=== PATIENT | female | born 1990 | race Caucasian/White ===

== ENCOUNTER → 2017-12-03 | Outpatient (CLI) | payer OTHER, BC ==
[~2017-12-03] MED LIST: CRUTCH4 USE; NAPR500 PO
[2017-12-05 07:19] LABS: HBSAG SCREEN Negative (Negative); HCV ANTIBODY 0.1 (0.0-0.9); HEPATITIS B SURF AB QUANT 260.7 mIU/mL (Immunity>9.9); HIV SCREEN 4TH GENERATION WRFX Non Reactive (Non Reactive)
== END | disposition home or self-care (01) ==
LOC: LAB SHORT 17:25 → LAB EV 17:25
PROVIDERS: Family Medicine
DX: Z20.9 Contact with and (suspected) exposure to unspecified communicable disease (principal)
CPT/HCPCS: 84460; 86317; 86803; 87340; 87389

== ENCOUNTER → 2018-01-20 | Outpatient (CLI) | payer OTHER, BC ==
[2018-01-22 08:25] LABS: HIV SCREEN 4TH GENERATION WRFX Non Reactive (Non Reactive)
== END | disposition home or self-care (01) ==
LOC: LAB EV 16:19 → LAB SHORT 16:19
PROVIDERS: Family Medicine
DX: Z20.9 Contact with and (suspected) exposure to unspecified communicable disease (principal)
CPT/HCPCS: 86803; 87389

== ENCOUNTER → 2018-03-11 | Outpatient (CLI) | payer OTHER, BC ==
[2018-03-13 03:12] LABS: HIV SCREEN 4TH GENERATION WRFX Non Reactive (Non Reactive)
== END | disposition home or self-care (01) ==
LOC: LAB SHORT 16:38 → LAB EV 16:38
PROVIDERS: Family Medicine
DX: Z20.9 Contact with and (suspected) exposure to unspecified communicable disease (principal)
CPT/HCPCS: 87389

== ENCOUNTER → 2019-10-05 | Outpatient (CLI) | payer OTHER, BC | END | disposition home or self-care (01) | LOC: LAB 16:33 → LAB SHORT 16:33 | PROVIDERS: Obstetrics & Gynecology | DX: Z12.4 Encounter for screening for malignant neoplasm of cervix (principal) | CPT/HCPCS: G0123 ==

== ENCOUNTER → 2020-04-04 | Outpatient (CLI) | payer OTHER, BC | END | disposition home or self-care (01) | LOC: LAB SHORT 17:00 → LAB 17:00 | DX: Z34.83 Encounter for supervision of other normal pregnancy, third trimester (principal); Z3A.36 36 weeks gestation of pregnancy | CPT/HCPCS: 87081; 87653 ==

== ENCOUNTER 2020-05-02 07:33 | Inpatient (IN) | payer OTHER, BC ==
[~2020-05-02] VITALS: Ht 160 cm; Wt 118.1 kg
[2020-05-02 09:31] LABS: BASOPHILS ABSOLUTE AUTO 0.03 K/mm3 (0.00-0.23); BASOPHILS PERCENT AUTO 0 % (0-2); EOSINOPHILS ABSOLUTE AUTO 0.08 K/mm3 (0.00-0.68); EOSINOPHILS PERCENT AUTO 1 % (0-6); Hematocrit 37.7 % (33.0-51.0); IMMATURE GRAN ABSOLUTE AUTO 0.13 K/mm3 (0.00-0.10); IMMATURE GRAN PERCENT AUTO 1 % (0-1); LYMPHOCYTES ABSOLUTE AUTO 2.52 K/mm3 (0.84-5.20); LYMPHOCYTES PERCENT AUTO 21 % (21-46); MONOCYTES ABSOLUTE AUTO 0.34 K/mm3 (0.16-1.47); MONOCYTES PERCENT AUTO 3 % (4-13); Mean Corpuscular HGB 29.3 pg (26.0-34.0); Mean Corpuscular HGB Conc 31.8 g/dL (31.5-36.5); Mean Corpuscular Volume 92 fL (80-100); Mean Platelet Volume 11.9 fL (9.1-12.4); NEUTROPHILS ABSOLUTE AUTO 9.17 K/mm3 (1.96-9.15); NEUTROPHILS PERCENT AUTO 75 % (41-73); Platelet Count 154 K/mm3 (150-400); RDW Coefficient Variation 13.2 % (11.7-14.2); RDW Standard Deviation 44.8 fL (35.1-46.3); White Blood Cell Count 12.27 K/mm3 (4.00-11.30)
[2020-05-02] MEDS ORDERED: PRENATAL TABLE1 EAC2 PO (09:48)
[2020-05-02] MEDS ORDERED: LEVSOD75 PO (09:49)
[2020-05-02] MEDS ORDERED: DOCU100 PO (09:49)
[2020-05-02] MEDS ORDERED: ACYCLOVIR400 MG (09:50)
--- NOTE | 2020-05-02 10:50 | NUR ---
PT HERE FOR LABOR INDUCTION. WASN'T AWARE OF ORDER, SO NIGHT RN CALLED PT, ANSWERED. THEY HEADED IN FROM HOME. VERY NICE, LOVING COUPLE. EXCITED ABOUT THIS BABY BOY. 40 2/7 WEEKS. PT HAS PURPLE RED DOTS THAT PT REPORTS HARD SPOTS ON THE OUTER LABIA NOTED. PT HAS HSV 2 POSITIVE, HAS NEVER HAD AN OUTBREAK AND WAS UNAWARE OF IT UNTIL MD GAVE RESULTS BACK. ACYLOVIR 400MG PO BID WAS STARTED 2 WEEKS AGAO PER PT AND THAT IS ALSO WHEN PURPLE BUMPS STARTED. PT ALSO HAS WHAT APPEARS TO BE AN INGROWN HAIR AT THE END OF A STRECH CARMEN RIGHT ABOVE HER PUBIC HAIRLINE. WILL TALK WITH MD IF SHE WOULD LIKE US TO CONTINUE ORAL PROVALAXIS WHILE INDUCTION IS GOING. PLANNING CYTO TIL MENA OF 8, THEN START PITOCIN.
[2020-05-03 05:03] LABS: BASOPHILS ABSOLUTE AUTO 0.03 K/mm3 (0.00-0.23); BASOPHILS PERCENT AUTO 0 % (0-2); EOSINOPHILS ABSOLUTE AUTO 0.07 K/mm3 (0.00-0.68); EOSINOPHILS PERCENT AUTO 0 % (0-6); Hematocrit 33.7 % (33.0-51.0); Hemoglobin 10.8 g/dL (11.5-16.0); IMMATURE GRAN ABSOLUTE AUTO 0.13 K/mm3 (0.00-0.10); IMMATURE GRAN PERCENT AUTO 1 % (0-1); LYMPHOCYTES ABSOLUTE AUTO 2.23 K/mm3 (0.84-5.20); LYMPHOCYTES PERCENT AUTO 13 % (21-46); MONOCYTES ABSOLUTE AUTO 0.69 K/mm3 (0.16-1.47); MONOCYTES PERCENT AUTO 4 % (4-13); Mean Corpuscular HGB 29.5 pg (26.0-34.0); Mean Corpuscular Volume 92 fL (80-100); NEUTROPHILS ABSOLUTE AUTO 14.76 K/mm3 (1.96-9.15); NEUTROPHILS PERCENT AUTO 82 % (41-73); Platelet Count 133 K/mm3 (150-400); RDW Coefficient Variation 13.3 % (11.7-14.2); RDW Standard Deviation 45.1 fL (35.1-46.3); Red Blood Cell Count 3.66 M/mm3 (3.80-5.20); White Blood Cell Count 17.91 K/mm3 (4.00-11.30)
--- NOTE | 2020-05-03 16:35 | NUR ---
RN ROUNDED TO HELP W/ . PT STATES HAS BEEN GOING WELL. INSTRUCT/REVIEWED CORRECT POSITIONING, LATCHING, NIPPLE SHAPE AFTER FEEDS, FREQUENCY OF FEEDING, SUPPLY/DEMAND OF BREASTMILK, AND EARLY FEEDING QUES. FURTHER SUPPORT OFFERED IF PT DESIRES. PT LOVING W/ NB, DENIES ANY FURTHER QUESTIONS OR CONCERNS.
--- NOTE | 2020-05-04 10:41 | NUR ---
DISCHARGE INSTRUCTIONS SIGNED. BANDS MATCHED. PT DISCHARGED TO HOME WITH INFANT.
== END 2020-05-04 10:56 | disposition home or self-care (01) | DRG 807 ==
LOC: OBS 07:33 → BC 07:46
PROVIDERS: ADMIT Obstetrics & Gynecology
PROC: 10E0XZZ Delivery of Products of Conception, External Approach (ICD-10-PCS; principal; 2020-05-02)
PROC: 0KQM0ZZ Repair Perineum Muscle, Open Approach (ICD-10-PCS; 2020-05-02)
PROC: 10907ZC Drainage of Amniotic Fluid, Therapeutic from Products of Conception, Via Natural or Artificial Opening (ICD-10-PCS; 2020-05-02)
PROC: 3E033VJ Introduction of Other Hormone into Peripheral Vein, Percutaneous Approach (ICD-10-PCS; 2020-05-02)
DX: O48.0 Post-term pregnancy (principal); Z37.0 Single live birth; O99.824 Streptococcus B carrier state complicating childbirth; O70.1 Second degree perineal laceration during delivery; Z3A.40 40 weeks gestation of pregnancy; O99.214 Obesity complicating childbirth; E66.01 Morbid (severe) obesity due to excess calories; O99.284 Endocrine, nutritional and metabolic diseases complicating childbirth; E03.9 Hypothyroidism, unspecified
CPT/HCPCS: 36415; 51702; 85025; 86850; 86900; 86901; J0290; J1885; J2001; J2405; J2590; J3010; J7120; U0003

== ENCOUNTER 2021-05-03 06:38 | Inpatient (IN) | payer OTHER, BC ==
[~2021-05-03] VITALS: Ht 162.6 cm; Wt 106.0 kg
[~2021-05-03 06:38] MED LIST changes: +ACYCLOVIR400 MG; +DOCU100 PO; +EUTHYROX50 MCG PO; +PRENATAL TABLE1 EAC2 PO
[2021-05-03 07:44] LABS: BASOPHILS ABSOLUTE AUTO 0.06 K/mm3 (0.00-0.23); BASOPHILS PERCENT AUTO 0 % (0-2); EOSINOPHILS ABSOLUTE AUTO 0.24 K/mm3 (0.00-0.68); EOSINOPHILS PERCENT AUTO 1 % (0-6); Hematocrit 42.6 % (33.0-51.0); Hemoglobin 14.6 g/dL (11.5-16.0); IMMATURE GRAN ABSOLUTE AUTO 0.09 K/mm3 (0.00-0.10); IMMATURE GRAN PERCENT AUTO 1 % (0-1); LYMPHOCYTES ABSOLUTE AUTO 3.61 K/mm3 (0.84-5.20); LYMPHOCYTES PERCENT AUTO 22 % (21-46); MONOCYTES PERCENT AUTO 4 % (4-13); Mean Corpuscular HGB 29.8 pg (26.0-34.0); Mean Corpuscular HGB Conc 34.3 g/dL (31.5-36.5); Mean Corpuscular Volume 87 fL (80-100); Mean Platelet Volume 10.6 fL (9.1-12.4); NEUTROPHILS ABSOLUTE AUTO 11.88 K/mm3 (1.96-9.15); NEUTROPHILS PERCENT AUTO 72 % (41-73); Platelet Count 280 K/mm3 (150-400); RDW Coefficient Variation 11.9 % (11.7-14.2); RDW Standard Deviation 37.9 fL (35.1-46.3); White Blood Cell Count 16.58 K/mm3 (4.00-11.30)
[2021-05-03 08:03] LABS: Alanine Aminotransfer (ALT/SGP 38 U/L (12-78); Albumin, Blood 3.6 g/dL (3.4-5.0); Albumin/Globulin Ratio 0.8 (0.8-1.8); Alk Phos 52 U/L (50-136); Anion Gap 10 mmol/L (6-16); Aspartate Aminotrans (AST/SGOT 26 U/L (12-37); Blood Urea Nitrogen 11 mg/dL (8-24); Bun/Creatinine Ratio 15.9 (12.0-20.0); CO2, Blood 23 mmol/L (21-32); Calcium, Blood 9.8 mg/dL (8.5-10.1); Chloride, Blood 103 mmol/L (98-108); Creatinine, Blood 0.69 mg/dL (0.40-1.00); Globulin, Blood 4.6 g/dL (2.2-4.0); Glomerular Filtration Rate >60 (60-); Glucose, Blood 100 mg/dL (70-99); Potassium, Blood 3.1 mmol/L (3.5-5.5); Sodium, Blood 136 mmol/L (136-145); Total Protein, Blood 8.2 g/dL (6.4-8.2)
[2021-05-03 09:23] LABS: Glucose, CSF 38 mg/dL (40-70)
[2021-05-03 09:24] LABS: Automated CSF WBC Count 3.839 K/mm3 (0-5); WBC Count, CSF 3839 /mm3 (0-5)
[2021-05-03 09:30] LABS: Automated CSF WBC Count 4.141 K/mm3 (0-5); WBC Count, CSF 4141 /mm3 (0-5)
[2021-05-03 09:52] LABS: Appearance, CSF Hazy (Clear); Color, CSF No Color (No Color)
[2021-05-03 09:53] LABS: RBC Count, CSF 47 /mm3 (0-0)
[2021-05-03 10:11] LABS: Appearance, CSF Hazy (Clear); Color, CSF No Color (No Color)
[2021-05-03 10:12] LABS: RBC Count, CSF 17 /mm3 (0-0)
[2021-05-03 10:17] LABS: Lymphocytes, CSF 1 % (40-80); Neutrophils, CSF 99 % (0-6)
[2021-05-03 10:19] LABS: Neutrophils, CSF 100 % (0-6)
[2021-05-03 10:40] LABS: Cryptococcus Neoformans/Gattii Not Detected (NOT DETECT); Enterovirus Not Detected (NOT DETECT); Escherichia Coli K1 Not Detected (NOT DETECT); Haemophilus Influenza Not Detected (NOT DETECT); Herpes Simplex Virus 1 Not Detected (NOT DETECT); Herpes Simplex Virus 2 Not Detected (NOT DETECT); Human Herpesvirus 6 Not Detected (NOT DETECT); Human Parechovirus Not Detected (NOT DETECT); Listeria Monocytogenes Not Detected (NOT DETECT); Neisseria Meningitidis Not Detected (NOT DETECT); Streptococcus Agalactiae Not Detected (NOT DETECT); Streptococcus Pneumoniae Not Detected (NOT DETECT); Varicella Zoster Virus Not Detected (NOT DETECT)
[2021-05-03 13:31] LABS: Source, Urine Catheter
--- NOTE | 2021-05-03 13:35 | NUR ---
Assumed care of pt upon arrival to ICU 7 from emergency department at 1135. Pt transferred from ED [place] to ICU bed using slider sheet and 5 staff. Pt in pain during transfer and in-bed repositioning to remove previous linens. Pain resolved with cessation of activity. Bandaid noted to pt's lower back, site of lumbar puncture, unremarkable in assessment. Pt responsive to verbal stimulus. Answers questions appropriately. Gives correct name, location, and date. States "he went home" when asked where her spouse is, as he was with her in the ER. Pt on room air. SpO2 90% or greater. ST per monitor, BP stable.
[2021-05-03 13:37] LABS: Appearance, Urine Clear (Clear); Bilirubin, Urine Neg (Neg); Blood, Urine 1+ (Neg); Color, Urine Yellow (P-Yellow); Glucose Qualitative, Urine Neg (Neg); Ketones, Urine 3+ (Neg); Leukocyte Esterase, Urine Neg (Neg); Nitrite, Urine Neg (Neg); Protein, Urine Neg (Neg); Urobilinogen, Urine 1+ (Normal)
--- NOTE | 2021-05-03 13:42 | NUR ---
Plan of care discussed with Dr Michel. Alexis inserted for strict I/O. test obtained. Plan to replace potassium and give addition 1 G rocephin to equal total admin 2 G.
[2021-05-03 13:59] LABS: Bacteria Not Seen /hpf; RBC Cast Rare /lpf (0); Squamous Epithelial Cells Rare /hpf (Few); White Blood Cells, Urine Not Seen /hpf (0-5)
[2021-05-03] MEDS ORDERED: Adipex-P37.5 MG PO (14:59)
[2021-05-03] MEDS ORDERED: ENSKYCE 28 TAB1 EACH PO (15:00)
[2021-05-03 17:42] LABS: Albumin, Blood 3.4 g/dL (3.4-5.0); Anion Gap 7 mmol/L (6-16); Blood Urea Nitrogen 8 mg/dL (8-24); Bun/Creatinine Ratio 14.7 (12.0-20.0); CO2, Blood 24 mmol/L (21-32); Calcium, Blood 8.9 mg/dL (8.5-10.1); Chloride, Blood 104 mmol/L (98-108); Creatinine, Blood 0.55 mg/dL (0.40-1.00); Glomerular Filtration Rate >60 (60-); Glucose, Blood 142 mg/dL (70-99); Phosphorus, Blood 3.7 mg/dL (2.5-4.9); Potassium, Blood 4.1 mmol/L (3.5-5.5); Sodium, Blood 135 mmol/L (136-145)
--- NOTE | 2021-05-03 17:57 | NUR ---
SUMMARY Neuro: Pt lethargic. Sensitive to dilaudid, but requires it for severe neck and back pain. Pt A&O x 4. Answers questions. Follows commands. Verbalizes needs. States correct reason why she is in hospital. Pt has not gotten OOB since arrival to unit. Moves all extremities. Denies numbness or tingling to extremities. 3 mm pupils. PERRL. Neuro assessment unchanged from arrival to unit. Respiratory: Lungs clear t/o. Pt on room air. Cardiac: ST per monitor. BP high/normal. Capillary refill less than 3 seconds BUE/BLE. 2+ radial, pedal, posttibial pulses. No edema. Unremarkable heart sounds. GI: Hypoactive BT. NPO diet, however okay for sips of water and meds. Tolerated small sips of water with tylenol. : Alexis catheter in place for strict measurement of fluid intake and output. Patent and draining clear, yellow urine. Skin: Unremarkable Psychosocial: Withdrawn. Flat affect. Anxious at times. Pt's spouse visited at bedside today. He also assisted with admission information.
--- NOTE | 2021-05-03 21:02 | NUR ---
ASSUMPTION OF CARE REPORT RECIEVED FROM DAY SHIFT RN. PT DROWSY, AWAKE WITH VERBAL STIMULI, ALERT AND ORIENTED X 4. PT HAS 5/5 STRENGTH BILATERALLY UE/LE. NEURO CHECKS TO BE DONE Q 2 HOURS. PT REPORTS PAIN TO THE BACK OF THE HEAD/ NECK. PRN MEDICATION GIVEN. PT ON DROPLET/CONTACT PRECAUTIONS. LOW GRADE FEVER NOTED. TEMP DE LEON IN PLACE AND DRAINING YELLOW URINE. SEE SHIFT ASSESSMENT. WILL CONTINUE TO MONITOR.
[2021-05-04 05:34] LABS: BASOPHILS ABSOLUTE AUTO 0.03 K/mm3 (0.00-0.23); BASOPHILS PERCENT AUTO 0 % (0-2); Hematocrit 38.8 % (33.0-51.0); Hemoglobin 13.1 g/dL (11.5-16.0); LYMPHOCYTES ABSOLUTE AUTO 1.17 K/mm3 (0.84-5.20); LYMPHOCYTES PERCENT AUTO 6 % (21-46); MONOCYTES ABSOLUTE AUTO 0.47 K/mm3 (0.16-1.47); MONOCYTES PERCENT AUTO 2 % (4-13); Mean Corpuscular HGB Conc 33.8 g/dL (31.5-36.5); Mean Corpuscular Volume 89 fL (80-100); Mean Platelet Volume 10.6 fL (9.1-12.4); Platelet Count 241 K/mm3 (150-400); RDW Coefficient Variation 11.7 % (11.7-14.2); Red Blood Cell Count 4.36 M/mm3 (3.80-5.20); White Blood Cell Count 20.16 K/mm3 (4.00-11.30)
[2021-05-04 05:35] LABS: EOSINOPHILS ABSOLUTE AUTO 1.59 K/mm3 (0.00-0.68); EOSINOPHILS PERCENT AUTO 8 % (0-6); IMMATURE GRAN ABSOLUTE AUTO 0.14 K/mm3 (0.00-0.10); IMMATURE GRAN PERCENT AUTO 1 % (0-1); NEUTROPHILS ABSOLUTE AUTO 16.76 K/mm3 (1.96-9.15); NEUTROPHILS PERCENT AUTO 83 % (41-73)
[2021-05-04 05:55] LABS: Alanine Aminotransfer (ALT/SGP 28 U/L (12-78); Albumin, Blood 2.9 g/dL (3.4-5.0); Albumin/Globulin Ratio 0.6 (0.8-1.8); Alk Phos 40 U/L (50-136); Anion Gap 6 mmol/L (6-16); Aspartate Aminotrans (AST/SGOT 12 U/L (12-37); Bilirubin, Total 0.9 mg/dL (0.1-1.0); Blood Urea Nitrogen 10 mg/dL (8-24); Bun/Creatinine Ratio 19.1 (12.0-20.0); CO2, Blood 24 mmol/L (21-32); Calcium, Blood 8.6 mg/dL (8.5-10.1); Chloride, Blood 105 mmol/L (98-108); Creatinine, Blood 0.52 mg/dL (0.40-1.00); Globulin, Blood 4.5 g/dL (2.2-4.0); Glomerular Filtration Rate >60 (60-); Glucose, Blood 128 mg/dL (70-99); Phosphorus, Blood 3.5 mg/dL (2.5-4.9); Potassium, Blood 3.6 mmol/L (3.5-5.5); Sodium, Blood 135 mmol/L (136-145); Total Protein, Blood 7.4 g/dL (6.4-8.2)
--- NOTE | 2021-05-04 06:23 | NUR ---
SHIFT SUMMARY NO ACUTE EVENTS OVERNIGHT. PT REMAINS ALERT AND ORIENTED X 4, CAN MOVE ALL EXTREMITIES. 2-3 MM PERRLA, BRISK. 5/5 STRENGTH BILTERALLY UE/LE. PRN DILAUDID PROVIDED FOR LOWER BACK/NECK AND BACK OF HEAD PAIN THROUGHOUT THE SHIFT. PT IS MORE AWAKE AND TALKATIVE NOW. PT REPORTS SHE FEELS BETTER BUT WHEN SHE MOVES AROUND THE PAIN IS UNBEARBLE. 900ML OF URINE DRAINED FROM DE LEON. PT IS NOW IN BED WATCHING TV. REPORT TO BE GIVEN TO DAY SHIFT RN.
--- NOTE | 2021-05-04 10:38 | NUR ---
PT TRANSFERRING TO PCU 7. REPORT GIVEN TO EMA TALBERT. PT REPORTING HEADACHE RADIATING TO LOWER BACK. PT GIVEN PRN DILAUDID ORDERED AND ICE PACKS PLACED ON PT'S LOWER BACK. DIET ORDERED AND PT TOLERATED WELL. TRANSFERRED VIA BED & RN. PT'S BELONGINGS TRANSFERRED W/ PT.
--- NOTE | 2021-05-04 17:56 | NUR ---
SHIFT NOTE PT TRANSFERED FROM ICU THIS AFTERNOON. PT WITH NS INFUSING, HAS RECIEVED VANCOMYCIN, AND POTASSIUM. PT A/O X4, ANSWERING QUESTIONS APPROPRIATELY. REPORTS GARCIA, NECK PAIN, AND BACK PAIN AT PUNCTURE SITE, HEAT AND COLD THERAPY APPLIED TO BACK FOR PAIN MANAGEMENT ALONG WITH DILAUDID PER EMAR. DENIES CP OR SOB. PT DOES HAVE DECREASED ROM OF HEAD AND NECK, NECK PILLOW IS ALSO APPLIED FOR COMFORT. PT IS ABLE TO ASSIST WITH REPOSITIONING.
[2021-05-04 19:06] LABS: Vancomycin, Trough 8.7 ug/mL (5.0-10.0)
[2021-05-05 04:55] LABS: BASOPHILS ABSOLUTE AUTO 0.03 K/mm3 (0.00-0.23); BASOPHILS PERCENT AUTO 0 % (0-2); EOSINOPHILS PERCENT AUTO 0 % (0-6); Hematocrit 38.8 % (33.0-51.0); Hemoglobin 12.7 g/dL (11.5-16.0); IMMATURE GRAN ABSOLUTE AUTO 0.16 K/mm3 (0.00-0.10); IMMATURE GRAN PERCENT AUTO 1 % (0-1); LYMPHOCYTES ABSOLUTE AUTO 1.25 K/mm3 (0.84-5.20); LYMPHOCYTES PERCENT AUTO 6 % (21-46); MONOCYTES ABSOLUTE AUTO 0.41 K/mm3 (0.16-1.47); MONOCYTES PERCENT AUTO 2 % (4-13); Mean Corpuscular HGB 29.7 pg (26.0-34.0); Mean Corpuscular HGB Conc 32.7 g/dL (31.5-36.5); Mean Corpuscular Volume 91 fL (80-100); Mean Platelet Volume 11.1 fL (9.1-12.4); NEUTROPHILS ABSOLUTE AUTO 19.04 K/mm3 (1.96-9.15); NEUTROPHILS PERCENT AUTO 91 % (41-73); Platelet Count 275 K/mm3 (150-400); RDW Coefficient Variation 11.9 % (11.7-14.2); RDW Standard Deviation 39.7 fL (35.1-46.3); Red Blood Cell Count 4.27 M/mm3 (3.80-5.20); White Blood Cell Count 20.89 K/mm3 (4.00-11.30)
[2021-05-05 05:10] LABS: Albumin, Blood 2.8 g/dL (3.4-5.0); Anion Gap 4 mmol/L (6-16); Blood Urea Nitrogen 14 mg/dL (8-24); Bun/Creatinine Ratio 31.6 (12.0-20.0); CO2, Blood 24 mmol/L (21-32); Calcium, Blood 8.8 mg/dL (8.5-10.1); Chloride, Blood 114 mmol/L (98-108); Creatinine, Blood 0.44 mg/dL (0.40-1.00); Glomerular Filtration Rate >60 (60-); Glucose, Blood 143 mg/dL (70-99); Phosphorus, Blood 2.2 mg/dL (2.5-4.9); Potassium, Blood 4.1 mmol/L (3.5-5.5); Sodium, Blood 142 mmol/L (136-145)
--- NOTE | 2021-05-05 06:45 | NUR ---
SHIFT SUMMARY PATIENT IS A PLESANT LADY WHO IS A&OX4 WITH SOME GEN WEAKNESS, NUCHAL RIGIDITY, AND SOME DIZZINESS NOTED WITH BIGGER MOVEMENTS. CLARIFIED WITH MD THAT PATIENT MAY BE OFF BEDREST AND WAS ABLE TO AMBULATE TO BATHROOM WITH ONE PERSON ASSIST TO HAVE BM. STILL WITH SOME DIZZINESS BUT KNOWS LIMITS AND TAKES IT SLOW. HEADACHES STILL MODERATE BUT IMPROVING IN FREQUENCY. PRN DILAUDID AND TRIALED OXY OVERNIGHT AND TOLERATED WELL. VSS. ON RA. NSR ON THE MONITOR. IV ABX AND FLUIDS INFUSING PER ORDER. TOLERATING REGULAR DIET WITHOUT ISSUE. DE LEON PATENT DRAINING TO GRAVITY. NO ACUTE CONCERNS AT THIS TIME. WILL CONTINUE PLAN OF CARE UNTIL REPORT GIVEN TO JULIANA BOO.
--- NOTE | 2021-05-05 17:47 | NUR ---
PT HAS BEEN A/O X4 T/O THE DAY. PT DOES COMPLAIN OF MORE NECK AND BACK PAIN DURING THIS SHIFT THAN THE PREVIOUS SHIFT. PT HAD BED BATH TODAY STATED SHE WAS TOO DIZZY FOR SHOWER. VSS. HAD ONE EPISODE OF CP TODAY OTHERWISE NO ACUTE CHANGES THIS SHIFT
[2021-05-06 02:11] LABS: BASOPHILS ABSOLUTE AUTO 0.01 K/mm3 (0.00-0.23); BASOPHILS PERCENT AUTO 0 % (0-2); EOSINOPHILS PERCENT AUTO 0 % (0-6); Hematocrit 35.5 % (33.0-51.0); Hemoglobin 11.6 g/dL (11.5-16.0); IMMATURE GRAN ABSOLUTE AUTO 0.07 K/mm3 (0.00-0.10); IMMATURE GRAN PERCENT AUTO 1 % (0-1); LYMPHOCYTES ABSOLUTE AUTO 1.51 K/mm3 (0.84-5.20); LYMPHOCYTES PERCENT AUTO 11 % (21-46); MONOCYTES ABSOLUTE AUTO 0.34 K/mm3 (0.16-1.47); MONOCYTES PERCENT AUTO 3 % (4-13); Mean Corpuscular HGB 30.2 pg (26.0-34.0); Mean Corpuscular HGB Conc 32.7 g/dL (31.5-36.5); Mean Corpuscular Volume 92 fL (80-100); NEUTROPHILS ABSOLUTE AUTO 11.79 K/mm3 (1.96-9.15); NEUTROPHILS PERCENT AUTO 86 % (41-73); Platelet Count 233 K/mm3 (150-400); RDW Standard Deviation 40.7 fL (35.1-46.3); Red Blood Cell Count 3.84 M/mm3 (3.80-5.20); White Blood Cell Count 13.72 K/mm3 (4.00-11.30)
[2021-05-06 02:29] LABS: Albumin, Blood 2.4 g/dL (3.4-5.0); Anion Gap 4 mmol/L (6-16); Blood Urea Nitrogen 16 mg/dL (8-24); Bun/Creatinine Ratio 33.9 (12.0-20.0); CO2, Blood 24 mmol/L (21-32); Calcium, Blood 8.1 mg/dL (8.5-10.1); Chloride, Blood 113 mmol/L (98-108); Creatinine, Blood 0.47 mg/dL (0.40-1.00); Glomerular Filtration Rate >60 (60-); Glucose, Blood 135 mg/dL (70-99); Phosphorus, Blood 3.2 mg/dL (2.5-4.9); Potassium, Blood 4.2 mmol/L (3.5-5.5); Sodium, Blood 141 mmol/L (136-145)
[2021-05-06 02:30] LABS: Vancomycin, Trough 18.5 ug/mL (5.0-10.0)
--- NOTE | 2021-05-06 06:19 | NUR ---
SHIFT SUMMARY PATIENT IS PLESANT LADY WHO IS A&OX4, WITH GENERALIZED WEAKNESS. STILL HAVING DIZZINESS WITH BIG MOVEMENTS AND WAS UNABLE TO STAND AT BEDSIDE BECAME TOO DIZZY. HEADACHE COMES AND GOES AND PRN FENT AND YANA HELPING KEEP AT TOLERABLE LEVEL. ENCOURAGING TO TAKE THINGS SLOW. KNOWS LIMITS WELL. VSS. ON RA. NSR IN THE 60'S TO START BUT STEADILY BECAME MORE SAYRA SHIFT WENT ON. LOW 40'S TO 50'S FOR REST OF SHIFT. ALSO NEW COMPLAINTS OF CHEST PAIN 5/10 DULL, PRESSURE. MD AWARE AND EKG DONE. SHOWED SAYRA WITH PAC'S. NO OTHER NEW ORDERS AT THIS TIME. TOLERATING REG DIET BUT POOR APPETITE. IV ABX AND FLUIDS RUNNING PER ORDER. DE LEON PATENT DRAINING TO GRAVITY. NO ACUTE CONCERNS AT THIS TIME. WILL CONTINUE PLAMN OF CARE UNTIL REPORT GIVEN TO JULIANA BOO.
--- NOTE | 2021-05-06 10:46 | NUR ---
CARE ASSUMPTION ASSUMED CARE OF PATIENT AT 0700. PATIENT A/OX4. VSS. TELE SINUS SAYRA IN THE 40S. MD AWARE. TROP NEGATIVE. CHEST X RAY DONE. EKG DONE AND SHOWS BRADYCARDIA. PATIENT RECEIVE TORADOL FOR CHEST PAIN THAT HELPED ALLEVIATE IT. PATIENT REPORTS HEADACHE. WORSENS WITH MOVEMENT AND BECOMES DIZZY WITH MOVEMENT. RELAXATION AND REST PROVIDES RELIEF. PRN PAIN MEDICATION AVAILABLE FOR PATIENT. REPEAT HEAD CT THIS AM. MD IN THIS MORNING TO DISCUSS PLAN WITH PATIENT AND PATIENT AWARE OF PLAN OF CARE. DE LEON CATH DRAINING WITH GRAVITY, CLEAR YELLOW. BED IN LOWEST POSITION AND CALL LIGHT WITHIN REACH. WILL CONTINUE TO MONITOR AND PROVIDE CARE.
--- NOTE | 2021-05-06 14:24 | NUR ---
ATROPINE PUSH DUE TO BRADYCARDIA MD HAYES TO SEE PATIENT DUE TO PATIENT HAVING HEART RATE AT 37. THIS RN AND JOSEFINA RN, AND MD MARIO DISCSSED WITH MD HAYES AND DECIDED TO PUSH 0.5MG OF ATROPINE TO INCREASE PATIENT HEART. THIS RN PUSHED 0.5MG OF ATROPINE AT 1330. HEART RATE INCREASED TO 110, AND PATIENT CURRENT HEART RATE IS AT 104. PATIENT BLOOD PRESSURE INCREASED. AN ORDER FOR HYDRALAZINE WAS PUT IN DUE TO PATIENT BLOOD PRESSURE BEING INCREASED, AND THIS RN GAVE 10MG OF HYDRALAZINE WHICH HELPED DECREASE THE PATIENT BLOOD PRESSURE. WILL CONTINUE TO MONITOR AND PROVIDE CARE AND NOTIFY MD OF ANY CHANGES. AT BEDSIDE AND CALL LIGHT WITHIN REACH
--- NOTE | 2021-05-06 17:41 | NUR ---
SHIFT SUMMARY PATIENT A/OX4. VSS. SPO2 >90% ON RA. TELE SR-SB, CURRENTLY SINUSBRADY AT 46. PATIENT REPORTS PRESSURE HEADACHE 7/10, PRESSURE LOCATED IN THE FRONT OF THE HEAD. PATIENT RECEIVED TYLENOL PER EMAR. AT BEDSIDE. Q2 NEURO CHECKS AND NOTIFY PROVIDER OF ANY NEURO CHANGES. DE LEON DRAINING WITH GRAVITY DARK YELLOW. BED IN LOWEST POSITION AND CALL LIGHT WITHIN REACH. NO ACUTE CHANGES SINCE LAST NOTE. WILL CONTINUE TO MONITOR AND PROVIDE CARE UNTIL HAND OFF WITH NEXT SHIFT.
[2021-05-07 01:21] LABS: BASOPHILS ABSOLUTE AUTO 0.01 K/mm3 (0.00-0.23); BASOPHILS PERCENT AUTO 0 % (0-2); EOSINOPHILS PERCENT AUTO 0 % (0-6); Hematocrit 33.7 % (33.0-51.0); Hemoglobin 11.1 g/dL (11.5-16.0); IMMATURE GRAN ABSOLUTE AUTO 0.07 K/mm3 (0.00-0.10); IMMATURE GRAN PERCENT AUTO 1 % (0-1); LYMPHOCYTES ABSOLUTE AUTO 1.62 K/mm3 (0.84-5.20); LYMPHOCYTES PERCENT AUTO 21 % (21-46); MONOCYTES ABSOLUTE AUTO 0.34 K/mm3 (0.16-1.47); MONOCYTES PERCENT AUTO 4 % (4-13); Mean Corpuscular HGB 30.2 pg (26.0-34.0); Mean Corpuscular HGB Conc 32.9 g/dL (31.5-36.5); Mean Corpuscular Volume 92 fL (80-100); Mean Platelet Volume 11.5 fL (9.1-12.4); NEUTROPHILS ABSOLUTE AUTO 5.88 K/mm3 (1.96-9.15); NEUTROPHILS PERCENT AUTO 74 % (41-73); Platelet Count 220 K/mm3 (150-400); RDW Coefficient Variation 11.8 % (11.7-14.2); RDW Standard Deviation 39.8 fL (35.1-46.3); Red Blood Cell Count 3.68 M/mm3 (3.80-5.20); White Blood Cell Count 7.92 K/mm3 (4.00-11.30)
[2021-05-07 02:16] LABS: Albumin, Blood 2.4 g/dL (3.4-5.0); Anion Gap 3 mmol/L (6-16); Blood Urea Nitrogen 16 mg/dL (8-24); Bun/Creatinine Ratio 28.4 (12.0-20.0); CO2, Blood 24 mmol/L (21-32); Calcium, Blood 7.9 mg/dL (8.5-10.1); Chloride, Blood 114 mmol/L (98-108); Creatinine, Blood 0.56 mg/dL (0.40-1.00); Glomerular Filtration Rate >60 (60-); Glucose, Blood 123 mg/dL (70-99); Phosphorus, Blood 2.9 mg/dL (2.5-4.9); Potassium, Blood 4.2 mmol/L (3.5-5.5); Sodium, Blood 141 mmol/L (136-145)
[2021-05-07 02:18] LABS: Vancomycin, Trough 17.5 ug/mL (5.0-10.0)
--- NOTE | 2021-05-07 06:14 | NUR ---
SHIFT SUMMARY PATIENT IS LETHARGIC, FOLLOWING SOME COMMANDS, ON THE BIPAP SO UNABLE TO ANSWER QUESTIONS. GARBLED SPEECH AND TREMORS AT BASELINE. ON BIPAP WITH 35% FIO2 SATING HIGH 90'S.TACHYPENIC IN THE HIGH 20'S TO 30'S. EX WHEEZES. VSS. NSR ON THE MONITOR. MECH SOFT DIET BUT NPO WHILE ON BIPAP. Q2H ORAL CARE AND TURNS PERFORMED. DE LEON PATENT DRAINING TO GRAVITY. NO ACUTE CONCERNS AT THIS TIME. WILL CONTINUE PLAN OF CARE UNTIL REPORT GIVEN TO JULIANA BOO.
--- NOTE | 2021-05-07 06:25 | NUR ---
SHIFT SUMMARY PATIENT IS A PLESANT LADY WHO IS A&OX4, WITH GENERALIZED WEAKNESS. Q2H NEURO CHECKS WITH NO ACUTE CHANGES. DIZZINESS WITH BIG MOVEMENTS SO REMAINS BEDREST AT THIS TIME. HEADACHE DULL ACHE AT TOLERABLE LEVEL OF 4/10. VSS. SAYRA IN THE 40'S-50'S AND DID TOUCH DOWN TO HIGH 30'S AT TIMES. MD MADE AWARE OF THIS AND PRN ATROPINE ADDED TO MED LIST IF HR SUSTAINS 30 BPM OR LESS. FREQUENT PAC'S. ON RA. IV FLUIDS AND ABX RUNNING PER ORDER. APPETITE IMPROVING ON REGULAR DIET. DE LEON PATENT DRAINING TO GRAVITY. TURNS SELF WELL IN BED. NO ACUTE CONCERNS AT THIS TIME. WILL CONTINUE PLAN OF CARE UNTIL REPORT GIVEN TO JULIANA BOO.
[2021-05-07 08:14] LABS: Free Thyroxine 0.95 ng/dL (0.70-1.60)
[2021-05-07 08:17] LABS: Thyroid Stimulating Hormone 0.05 uIU/mL (0.360-4.800)
--- NOTE | 2021-05-07 09:09 | NUR ---
CARE ASSUMPTION ASSUMED CARE OF PATIENT AT 0700. A/OX4. VSS. SPO2 >90% ON RA. TELE SINUS AT 60. HALLIE REPORTS THROBBING IN THE FRONT OF HER HEAD. PATIENT PROVIDED COOL WASH CLOTH AND REPOSITIONED WHICH HELPED. DE LEON CATH IN PLACE DRAINING WITH GRAVITY, YELLOW. BED IN LOWEST POSITION AND CALL LIGHT WITHIN REACH. WILL CONTINUE TO MONITOR AND PROVIDE CARE.
--- NOTE | 2021-05-07 18:07 | NUR ---
SHIFT SUMMARY PATIENT A/OX4. VSS. SPO2 >90% ON RA. TELE SINUS WITH PVC AT 63. ASSIST WITH BEDSIDE COMODE BATH, SHAMPOO, AND SHAVE. LINEN CHANGE. PATIENT TOLERATED GETTING UP TO BESIDE COMODE VERY WELL. REPORTED NO DIZZNESS, PAIN, CHEST PAIN, SOB, OR PRESSURE IN HEAD. DE LEON CATH IN PLACE DRAINING CLEAR YELLOW WITH GRAVITY. CALL LIGHT WITHIN REACH AND BED IN LOWEST POSITION. WILL CONTINUE TO MONITOR AND PROVIDE CARE UNTIL HAND OFF WITH NEXT SHIFT.
--- NOTE | 2021-05-08 04:09 | NUR ---
SHIFT SUMMARY PATIENT IS ALERT AND ORIENTED X4. NEURO WNL AND UNCHANGED THROUGH THE SHIFT, PATIENT DENIES HEADACHE WILL REASSES WITH AM VITALS AGAIN. 02 SATS 99% ON RA. PATIENT SB @40s AND AT TIMES UPPER 30s THROUGH THE NIGHT. BP STABLE. DE LEON DRANING CLEAR YELLOW URINE. PATIENT ABLE TO REPOSITION SELF IN BED. CALL LIGHT IN REACH.
[2021-05-08 05:26] LABS: BASOPHILS ABSOLUTE AUTO 0.01 K/mm3 (0.00-0.23); BASOPHILS PERCENT AUTO 0 % (0-2); EOSINOPHILS PERCENT AUTO 0 % (0-6); Hematocrit 35.1 % (33.0-51.0); Hemoglobin 11.7 g/dL (11.5-16.0); IMMATURE GRAN ABSOLUTE AUTO 0.17 K/mm3 (0.00-0.10); IMMATURE GRAN PERCENT AUTO 2 % (0-1); LYMPHOCYTES ABSOLUTE AUTO 1.73 K/mm3 (0.84-5.20); LYMPHOCYTES PERCENT AUTO 20 % (21-46); MONOCYTES ABSOLUTE AUTO 0.31 K/mm3 (0.16-1.47); MONOCYTES PERCENT AUTO 4 % (4-13); Mean Corpuscular HGB Conc 33.3 g/dL (31.5-36.5); Mean Corpuscular Volume 90 fL (80-100); NEUTROPHILS ABSOLUTE AUTO 6.55 K/mm3 (1.96-9.15); NEUTROPHILS PERCENT AUTO 75 % (41-73); Platelet Count 253 K/mm3 (150-400); RDW Coefficient Variation 11.6 % (11.7-14.2); RDW Standard Deviation 37.7 fL (35.1-46.3); White Blood Cell Count 8.77 K/mm3 (4.00-11.30)
[2021-05-08 06:02] LABS: Albumin, Blood 2.5 g/dL (3.4-5.0); Anion Gap 5 mmol/L (6-16); Blood Urea Nitrogen 15 mg/dL (8-24); Bun/Creatinine Ratio 28.2 (12.0-20.0); CO2, Blood 23 mmol/L (21-32); Calcium, Blood 8.3 mg/dL (8.5-10.1); Chloride, Blood 110 mmol/L (98-108); Creatinine, Blood 0.53 mg/dL (0.40-1.00); Glomerular Filtration Rate >60 (60-); Glucose, Blood 125 mg/dL (70-99); Phosphorus, Blood 3.6 mg/dL (2.5-4.9); Potassium, Blood 4.1 mmol/L (3.5-5.5); Sodium, Blood 138 mmol/L (136-145)
--- NOTE | 2021-05-08 11:07 | NUR ---
UPDATE 05/08/21: 30 YOF ADMITTED WITH BACTERIAL MENINGITIS. DAY 5 OF HOSPITALIZATION. MRI OF THE HEAD PENDING. INFECTIOUS DISEASE CONSULT ORDERED THIS AM. DISPOSITION UNKNOWN. POTENTIAL FOR PT. TO REQUIRE IV ABX. OUTPATIENT. CONSIDER ATC VS. HOME INFUSIONS. DECISION WILL ALSO DEPEND UPON THE FREQUENCY AND DURATION IN WHICH PATIENT WILL NEED TO RECEIVE ABX. PLAN TO REVIEW DR. MORSE'S NOTES AND ALSO DISCUSS FURTHER WITH DR. GROVER. ANTICIPATE NEEDS AT TIME OF DISCHARGE TO INCLUDE: ABX. (LIKELY IV ROUTE), PT/OT EVAL DAILY UNTIL DISCHARGE, REFERRAL, HOSPITAL F/U WITH PCP WITHIN 5-7 DAYS POST DISCHARGE.
--- NOTE | 2021-05-08 19:39 | NUR ---
SHIFT SUMMARY PT A/O X4 AND COOPERATIVE OF CARE. PT SBP IN 160-180'S, HYDRALIZINE GIVEN PER EMAR, PT NECK AND FACE BECAME FLUSH/REDDENED WITH NO REPORT OF ITCHING. OTHER VITALS STABLE T/O SHIFT. PT HAS DE LEON IN PLACE DRAINING TO GRAVITY. PT WAS ABLE TO AMBULATE TO TOILET WITH MINIMAL ASSISTANCE FOR BM, TOLERATED FAIR. NO REPORT OF CHEST PAIN/PRESSURE T/O SHIFT. PT REPORTED LEG PAIN/NUMBNESS WHEN AMBULATING TO TOILET.
[2021-05-09 05:00] LABS: BASOPHILS ABSOLUTE AUTO 0.02 K/mm3 (0.00-0.23); BASOPHILS PERCENT AUTO 0 % (0-2); EOSINOPHILS ABSOLUTE AUTO 0.01 K/mm3 (0.00-0.68); EOSINOPHILS PERCENT AUTO 0 % (0-6); Hematocrit 37.1 % (33.0-51.0); Hemoglobin 12.8 g/dL (11.5-16.0); IMMATURE GRAN ABSOLUTE AUTO 0.29 K/mm3 (0.00-0.10); IMMATURE GRAN PERCENT AUTO 2 % (0-1); LYMPHOCYTES ABSOLUTE AUTO 3.65 K/mm3 (0.84-5.20); LYMPHOCYTES PERCENT AUTO 27 % (21-46); MONOCYTES ABSOLUTE AUTO 0.89 K/mm3 (0.16-1.47); MONOCYTES PERCENT AUTO 7 % (4-13); Mean Corpuscular HGB 30.1 pg (26.0-34.0); Mean Corpuscular HGB Conc 34.5 g/dL (31.5-36.5); Mean Corpuscular Volume 87 fL (80-100); Mean Platelet Volume 10.6 fL (9.1-12.4); NEUTROPHILS ABSOLUTE AUTO 8.45 K/mm3 (1.96-9.15); NEUTROPHILS PERCENT AUTO 63 % (41-73); Platelet Count 310 K/mm3 (150-400); RDW Coefficient Variation 11.4 % (11.7-14.2); RDW Standard Deviation 36.3 fL (35.1-46.3); Red Blood Cell Count 4.25 M/mm3 (3.80-5.20); White Blood Cell Count 13.31 K/mm3 (4.00-11.30)
[2021-05-09 05:18] LABS: Alanine Aminotransfer (ALT/SGP 76 U/L (12-78); Albumin, Blood 2.4 g/dL (3.4-5.0); Albumin/Globulin Ratio 0.6 (0.8-1.8); Alk Phos 34 U/L (50-136); Anion Gap 5 mmol/L (6-16); Aspartate Aminotrans (AST/SGOT 12 U/L (12-37); Bilirubin, Total 0.6 mg/dL (0.1-1.0); Blood Urea Nitrogen 17 mg/dL (8-24); Bun/Creatinine Ratio 32.4 (12.0-20.0); CO2, Blood 27 mmol/L (21-32); Calcium, Blood 8.3 mg/dL (8.5-10.1); Chloride, Blood 103 mmol/L (98-108); Creatinine, Blood 0.53 mg/dL (0.40-1.00); Globulin, Blood 3.7 g/dL (2.2-4.0); Glomerular Filtration Rate >60 (60-); Glucose, Blood 96 mg/dL (70-99); Potassium, Blood 4.1 mmol/L (3.5-5.5); Sodium, Blood 135 mmol/L (136-145); Total Protein, Blood 6.1 g/dL (6.4-8.2)
--- NOTE | 2021-05-09 06:38 | NUR ---
SHIFT SUMMARY NO ACUTE CHANGES THIS SHIOFT, VSS EXCEPT SOME MODERATE HTN WITH SBP 160'S. PT SEVERELELY SYMPTOMATIC TO HYDRALZINE AND THUIS, PT/RN ELECTED TO AWAIT TREATING WITH IT UNTIL SBP >170. HR HAS BEEN SINUS SAYRA BUT RANGING BETWEEN 40-55. REMAINS ON RA. PT STATES FEELING OVERALL "MUCH BETTER". DE LEON PATENT AND DRAINING. ATE A SMALL MEAL THIS SHIFT. NO NEURO CHANGES NOTED. BED ALARM IN PLACE.
--- NOTE | 2021-05-09 09:57 | NUR ---
Discussed options for IV Rocephin with patient and her Gabi at bedside yesterday. Gabi is comfortable learning to assist in administration and both are agreeable to [facility] being involved in assisting as well. Working with [facility] in [place] this am to try and get abx. quickly for pt. They are currently in the process of verifying insurance and obtaining prior auth. Potential for patient's to be able to berry picker machine operator the abx. directly from the pharmacy or possibly have it send fed-ex. Patient hoping to discharge this evening if possible. Expecting return call from pharmacy within he next hour with plan.
--- NOTE | 2021-05-09 10:47 | NUR ---
[facility] will be able to provide ceftriaxone. They are requesing order and chart notes. All have been faxed. They will contact me when they have approval to move forward with abx. I have requested that they allow patient's to potato picker from pharmacy. Staff will discuss with manager web application and get back to me as soon as possible.
[2021-05-09] MEDS ORDERED: Prinivil10 MG PO (17:49)
[2021-05-09] MEDS ORDERED: VISBIOME 112.51 EACH PO (17:50)
--- NOTE | 2021-05-09 17:59 | NUR ---
Abx. approved by insurance. Pharmacy has prepared abx., ball IV pump, and detailed instructions. Patient's went to [place] to pickle water pump operator and was taught how to administer as well. Pharmacy went above and beyond to ensure that the pt. was all set. Orders faxed to [facility] for visit tomorrow morning. PT and nursing ordered through [facility]. Patient's will administer dose tonight. Small pump is set to dose exact right amount and over the exact time frame of 20 minutes. They know to contact [facility] or PCP if any concerns. Patient is scheduled for hospital F/U with Dr. Osei this Saturday05/12/21 at 11:20pm. ANTIONE team will follow-up within 24-48 hours post discharge.
--- NOTE | 2021-05-09 18:14 | NUR ---
DISCHARGE UPDATE PT DISCHARGED AT 1805. PT BELONGINGS WITH PT IN BAGS. PT DISCHARGE FOLDER ALSO WITH PT. PT EDUCATED ON IV MEDICATION ADMINISTRATION FOR AT HOME. TAUGHT BACK INSTRUCTIONS TO THIS RN. PT AND NOTIFIED THAT HOME HEALTH WILL ARRIVE TO HOME TOMORROW MORNING. PT PICKED UP IV MEDS PREVIOUSLY TODAY IN [place], [place]. PT TRANSFERED SELF FROM BED TO WHEELCHAIR AND TRRANSPORTED TO VEHICLE VIA WHEELCHAIR. PT INFORMED ON FOLLOW UP WITH PCP AND FOR LABS TO BE DRAWN AT [place].
== END 2021-05-09 16:15 | disposition home or self-care (01) | DRG 96 ==
LOC: ER 06:38 → ICUE 10:19 → PCU 10:19 → ICUW 10:19 → ICUE 11:50 → PCU 05-04 10:45
PROVIDERS: Emergency Medicine; Hospitalist; Internal Medicine Endocrinology, Diabetes & Metabolism; ADMIT Family Medicine
PROC: 009U3ZX Drainage of Spinal Canal, Percutaneous Approach, Diagnostic (ICD-10-PCS; principal; 2021-05-03)
DX: G00.9 Bacterial meningitis, unspecified (principal); E06.3 Autoimmune thyroiditis; E03.9 Hypothyroidism, unspecified; D50.9 Iron deficiency anemia, unspecified; K58.9 Irritable bowel syndrome, unspecified; R00.1 Bradycardia, unspecified; E05.90 Thyrotoxicosis, unspecified without thyrotoxic crisis or storm; E87.6 Hypokalemia; G43.909 Migraine, unspecified, not intractable, without status migrainosus; Z88.2 Allergy status to sulfonamides; Z91.018 Allergy to other foods; Z79.2 Long term (current) use of antibiotics; Z79.899 Other long term (current) drug therapy
CPT/HCPCS: 36415; 51702; 62270; 70450; 70553; 71045; 80053; 80069; 80202; 81001; 82945; 83605; 83735; 84100; 84157; 84439; 84443; 84484; 84703; 85025; 85651; 87040; 87070; 87205; 87483; 89051; 93005; 93010; 94762; 96374; 96375; 96376; 97110; 97162; 97165; 97530; 99285-25; A9270; A9579; C1751; C9113; J0360; J0461; J0696; J1100; J1170; J1650; J1885; J2405; J2765; J3010; J3370; J3475; J3480; J7030; J7050

== ENCOUNTER 2022-12-18 07:00 | Inpatient (IN) | payer BC ==
[~2022-12-18] VITALS: Ht 160 cm; Wt 116.0 kg
[2022-12-18] VITALS (36 sets, daily range): BP systolic 87–130; BP diastolic 50–76
[~2022-12-18 07:00] MED LIST changes: +Adipex-P37.5 MG PO; +ENSKYCE 28 TAB1 EACH PO; +Prinivil10 MG PO; +VISBIOME 112.51 EACH PO
[2022-12-18 09:05] LABS: BASOPHILS ABSOLUTE AUTO 0.04 K/mm3 (0.00-0.23); BASOPHILS PERCENT AUTO 0 % (0-2); EOSINOPHILS ABSOLUTE AUTO 0.13 K/mm3 (0.00-0.68); EOSINOPHILS PERCENT AUTO 1 % (0-6); Hematocrit 35.4 % (33.0-51.0); Hemoglobin 11.4 g/dL (11.5-16.0); IMMATURE GRAN ABSOLUTE AUTO 0.25 K/mm3 (0.00-0.10); IMMATURE GRAN PERCENT AUTO 2 % (0-1); LYMPHOCYTES ABSOLUTE AUTO 2.78 K/mm3 (0.84-5.20); LYMPHOCYTES PERCENT AUTO 20 % (21-46); MONOCYTES ABSOLUTE AUTO 0.51 K/mm3 (0.16-1.47); MONOCYTES PERCENT AUTO 4 % (4-13); Mean Corpuscular HGB Conc 32.2 g/dL (31.5-36.5); Mean Corpuscular Volume 90 fL (80-100); Mean Platelet Volume 11.4 fL (9.1-12.4); NEUTROPHILS ABSOLUTE AUTO 10.05 K/mm3 (1.96-9.15); NEUTROPHILS PERCENT AUTO 73 % (41-73); Platelet Count 141 K/mm3 (150-400); RDW Coefficient Variation 14.2 % (11.7-14.2); RDW Standard Deviation 47.1 fL (35.1-46.3); Red Blood Cell Count 3.93 M/mm3 (3.80-5.20); White Blood Cell Count 13.76 K/mm3 (4.00-11.30)
[2022-12-19] VITALS (22 sets, daily range): BP systolic 91–127; BP diastolic 50–74
--- NOTE | 2022-12-19 10:08 | NUR ---
12/19/22 1000 PT AMBULATED TO BATHROOM WITH ASSIST X 2 RN, RIGHT LEG SLIGHTLY HEAVY AND CHOICE WAS NMADE TO ONLY SIT ON TOILET AND VOID AND DO A MINIMAL TOWEL BATH AND LATER DO FULL SHOWER WHEN PT ABLE TO STAND ON HER OWN SAFELY
[2022-12-20 05:06] VITALS: BP 95/51
[2022-12-20 06:18] LABS: BASOPHILS ABSOLUTE AUTO 0.04 K/mm3 (0.00-0.23); BASOPHILS PERCENT AUTO 0 % (0-2); EOSINOPHILS ABSOLUTE AUTO 0.21 K/mm3 (0.00-0.68); EOSINOPHILS PERCENT AUTO 2 % (0-6); Hematocrit 35.6 % (33.0-51.0); Hemoglobin 11.5 g/dL (11.5-16.0); IMMATURE GRAN ABSOLUTE AUTO 0.14 K/mm3 (0.00-0.10); IMMATURE GRAN PERCENT AUTO 1 % (0-1); LYMPHOCYTES ABSOLUTE AUTO 2.88 K/mm3 (0.84-5.20); LYMPHOCYTES PERCENT AUTO 25 % (21-46); MONOCYTES ABSOLUTE AUTO 0.49 K/mm3 (0.16-1.47); MONOCYTES PERCENT AUTO 4 % (4-13); Mean Corpuscular HGB 29.3 pg (26.0-34.0); Mean Corpuscular HGB Conc 32.3 g/dL (31.5-36.5); Mean Corpuscular Volume 91 fL (80-100); Mean Platelet Volume 11.5 fL (9.1-12.4); NEUTROPHILS ABSOLUTE AUTO 7.98 K/mm3 (1.96-9.15); NEUTROPHILS PERCENT AUTO 68 % (41-73); Platelet Count 141 K/mm3 (150-400); RDW Coefficient Variation 14.3 % (11.7-14.2); RDW Standard Deviation 47.1 fL (35.1-46.3); Red Blood Cell Count 3.92 M/mm3 (3.80-5.20); White Blood Cell Count 11.74 K/mm3 (4.00-11.30)
[2022-12-20 08:05] VITALS: BP 116/67
== END 2022-12-20 08:25 | disposition home or self-care (01) | DRG 807 ==
LOC: OBS 07:00 → BC 07:03 → OBS 07:44 → BC 07:50
PROVIDERS: ADMIT Obstetrics & Gynecology
PROC: 10E0XZZ Delivery of Products of Conception, External Approach (ICD-10-PCS; principal; 2022-12-19)
PROC: 0KQM0ZZ Repair Perineum Muscle, Open Approach (ICD-10-PCS; 2022-12-19)
PROC: 00HU33Z Insertion of Infusion Device into Spinal Canal, Percutaneous Approach (ICD-10-PCS; 2022-12-19)
PROC: 3E0R3BZ Introduction of Anesthetic Agent into Spinal Canal, Percutaneous Approach (ICD-10-PCS; 2022-12-19)
DX: O99.214 Obesity complicating childbirth (principal); Z37.0 Single live birth; O70.1 Second degree perineal laceration during delivery; Z88.1 Allergy status to other antibiotic agents; Z3A.39 39 weeks gestation of pregnancy; Z88.2 Allergy status to sulfonamides; Z79.890 Hormone replacement therapy; Z91.018 Allergy to other foods; Z67.40 Type O blood, Rh positive; Z79.899 Other long term (current) drug therapy
CPT/HCPCS: 36415; 51702; 85025; 86850; 86900; 86901; A9270; J1885; J2405; J2590; J3010; J7120